=== PATIENT | male | born 1985 | race Caucasian/White ===

== ENCOUNTER 2023-04-30 18:43 | Emergency (ER) | payer SELFPAY ==
[~2023-04-30] VITALS: Ht 170.2 cm; Wt 75.0 kg
[2023-04-30 18:45] VITALS: BP 161/95; PULSE 113; RESP 18; TEMP 98.3; O2SAT 100
== END 2023-04-30 18:56 | disposition home or self-care (01) ==
LOC: ER 18:43
DX: F10.129 Alcohol abuse with intoxication, unspecified (principal); R00.2 Palpitations
CPT/HCPCS: 99283